=== PATIENT | female | born 1965 | race Caucasian/White ===

== ENCOUNTER → 2016-11-08 | Day surgery (SDC) | payer BC ==
[~2016-11-08] MED LIST: HYDROmorphone 2 MG/ML VIAL IV PRN; IV RINGERS,LACTATED 1000ML 1,000 ML IV SCH; LIDOCAINE 1% 1 ML SYRINGE. ID PRN; MORPHINE SULFATE 2 MG/ML DISP.SYRIN. IV PRN; ONDANSETRON PF 4 MG/2 ML VIAL. IV PRN; PROCHLORPERAZINE 10 MG/2 ML VIAL. IV PRN; PROPOFOL 20 ML IV ONE; fentaNYL PF VIAL 100 MCG/2 ML VIAL IV PRN
[2016-11-08 11:17] VITALS: BP 132/59
--- NOTE | 2016-11-09 03:46 | CONS ---
DATE OF CONSULTATION: 11/08/2016 REFERRING PHYSICIAN: Justina Fish M.D. HISTORY OF PRESENT ILLNESS: This is a 51-year-old female whose past medical history is significant for asthma and palpitations, is seen for a screening colon exam. Bowel habits are regular without diarrhea or constipation. Family history is negative for colon cancer, but positive for colonic polyps. Weight and appetite are stable. There has been no melena and/or hematochezia, and she has otherwise been in good health. PAST MEDICAL HISTORY: Asthma and palpitations. ALLERGIES: SULFA. MEDICATIONS: At the present time include multivitamin, vitamin D and fish oil. OBSTETRIC AND GYNECOLOGIC HISTORY: She is 2, para 2. SOCIAL HISTORY: Social drinker. Nonsmoker. FAMILY HISTORY: Significant for hypertension with grandparents, diabetes with a sibling, breast cancer with many aunts. REVIEW OF SYSTEMS: As per records. PHYSICAL EXAMINATION: GENERAL: Reveals a well-nourished, well-developed female. VITAL SIGNS: Temperature is 98.4, pulse 94, respiratory rate is 20. HEENT: Exam reveals normocephalic and atraumatic head. Pupils and extraocular movements are not tested. Sclerae are anicteric. NECK: Supple. LUNGS: Clear. CARDIOVASCULAR: Reveals an S1 and S2 without S3, S4 or appreciable murmur. ABDOMEN: Reveals a soft abdomen, normoactive bowel sounds without appreciable hepatosplenomegaly. EXTREMITIES: Reveals no cyanosis, clubbing or edema. IMPRESSION: Colorectal screening is warranted this time. Risks and benefits of the procedure including risk of hemorrhage and perforation have been previously discussed with the patient who is willing to proceed. I would like to thank Dr. Justina Fish for allowing us to consult and participate in this patient's care. DAJA PRITCHARD MD DR: OSCAR/amarjit JOB#: [id number] / [id number]
== END | disposition home or self-care (01) ==
LOC: ENDOS 08:48
PROVIDERS: ATTEND Internal Medicine Gastroenterology
DX: Z12.11 Encounter for screening for malignant neoplasm of colon (principal); K64.0 First degree hemorrhoids; J45.909 Unspecified asthma, uncomplicated; Z88.2 Allergy status to sulfonamides
CPT/HCPCS: 45378; J2704

== ENCOUNTER → 2018-05-28 | Outpatient (CLI) | payer OTHER ==
[2016-11-08 11:17] VITALS: BP 132/59
[2018-05-29 05:16] LABS: CALCIUM PTH 10.1 mg/dL (8.7-10.2); CREATININE PTH 0.77 mg/dL (0.57-1.00); PHOSPHORUS PTH 3.6 mg/dL (2.5-4.5); PTH INTACT 42 pg/mL (15-65)
--- NOTE | 2018-05-29 10:09 | PATHOLOGY ---
[facility] Accession Number: [id number] . 01 Material submitted: . RENAL STONE . 01 Clinical history: . Renal calculus . 02 Diagnosis: Renal calculus: - Consistent with calculus. - Specimen is sent out for further processing. Report pending outside analysis. S/05/28/2018 . 02 Electronically signed: . Rafael Brock MD, Pathologist NPI- [id number] . 01 Gross description: . The specimen is received fresh, labeled "Virginia Melendez, renal calculus". Received is a single brown calculus measuring 0.3 x 0.3 x 0.3 cm. The specimen is forwarded to sendouts for further processing. (SDY; 05/28/2018) SYU/SYU . 02 Pathologist provided ICD-10: N20.0 . 02 CPT . 084245 Specimen Comment: A courtesy copy of this report has been sent to Specimen Comment: [phone], . Specimen Comment: Report sent to and Specimen Comment: A duplicate report has been generated due to demographic updates. Performed at: 01 [facility] [address] [facility] [address], [place] [id number] MD Power Nugent MD Phone: [phone] Performed at: 02 [facility] [address] [place], [place] [id number] MD Rafael Brock MD Phone: [phone]
== END | disposition home or self-care (01) ==
LOC: LAB 12:53
PROVIDERS: ATTEND Urology
DX: N20.2 Calculus of kidney with calculus of ureter (principal)
CPT/HCPCS: 83970; 84550; 88300